=== PATIENT | female | born 1970 | race Two or more races ===

== ENCOUNTER 2021-08-14 11:33 | Emergency (ER) | payer MEDICAID, OTHER ==
[~2021-08-14] VITALS: Ht 152.4 cm; Wt 57.6 kg
[2021-08-14 11:37] VITALS: BP 167/65
[2021-08-14] MEDS ORDERED: PERI1TAB PO (12:24)
== END 2021-08-14 12:48 | disposition home or self-care (01) ==
LOC: ER 11:33
DX: I10 Essential (primary) hypertension (principal); E03.9 Hypothyroidism, unspecified; Z76.0 Encounter for issue of repeat prescription; Z79.899 Other long term (current) drug therapy

== ENCOUNTER 2023-02-25 02:27 | Emergency (ER) | payer MEDICAID ==
[~2023-02-25] VITALS: Ht 152.4 cm; Wt 60.0 kg
[~2023-02-25 02:27] MED LIST: PERI1TAB PO
[2023-02-25] MEDS ORDERED: SODIUM CHLORIDE 0.9% 1,000 ML IV ONE (03:45)
[2023-02-25] MEDS ORDERED: cefTRIAXone 1GM/50ML D5W 50 ML IV ONE (03:45)
[2023-02-25 04:38] LABS: Urine Bacteria NONE SEEN /hpf (None Seen); Urine Blood 3+ /uL (Negative); Urine Clarity HAZY (Clear); Urine Color PINK (Yellow); Urine Protein, UAD 2+ (Negative); Urine Specific Gravity 1.007 (1.001-1.035); Urine Urobilinogen Normal (Negative); Urine WBC 276 /hpf (0 - 5); Urine WBC Clumps PRESENT /hpf (None Seen); Urine pH 7.5 (5.0-8.0)
[2023-02-25] MEDS ORDERED: SULF800T23 PO (05:01)
[2023-02-25 06:25] VITALS: BP 148/82; PULSE 92; RESP 20; TEMP 98.2; O2SAT 99
== END 2023-02-25 06:42 | disposition home or self-care (01) ==
LOC: ER 02:28
DX: N39.0 Urinary tract infection, site not specified (principal); I10 Essential (primary) hypertension
CPT/HCPCS: 81001; 96365; 99284; J0696; J7030